=== PATIENT | female | born 1990 | race Caucasian/White ===

== ENCOUNTER 2025-01-24 10:33 | Outpatient (CLI) | payer OTHER, SELFPAY ==
--- OUTSIDE RECORDS SUMMARY | 2023-07-28 15:30 | XMS_ITS ---
Author Organization [facility] [place] ([address]) Address [address] [place] [address] Care Team Providers Care Presser All Around Name Role Phone Clifford Kimble Primary Care Provider Unavailabl e Brenda Godoy Unavailable [phone] ZZ-Migration, Provider Unavailable Unavailab le Allergies Allergen (clinical drug ingredient) Drug/Non Drug Allergy documented on EMR Reaction Allergy Type Onset Date Status Substance with sulfonamide structure and antibacterial mechanism of action (substance) SULFA MEDICATIONS (uncoded) Hives, welling, itchiness Allergy Active REASON FOR VISIT [facility] Conversion Encounter Medications Medication SIG (Take, Route, Frequency, Duration) Notes Start Date End Date Status Cetirizine HCl 10 MG 1 tab(s) orally once a day; Duration: 30 days Active OLOPATADINE NASAL 665 MCG/INH 2 SPRAY(S) INTRANASALLY 2 TIMES A DAY; Duration: 30 DAYS *Please review for potential replacement for e-prescription and drug interaction check* Active NASAL WASHES N/A DIRECTED INTRANASALLY NEEDED; Duration: 30 *Please review for potential replacement for e-prescription and drug interaction check* Active Spironolactone 25 MG 1 tab(s) orally once a day Active Encounters Encounter Location Date Provider [place] [address] 07/28/2023 Provider ZZ-Migration Plan Of Treatment No Information Progress Notes * Renita GARCIA RDOB:1990 (34 yo F)Acc No.[id number]:07/28/2023 Patient: Renita EPPERSON Provider: Larry Covarrubias :1990 A ge:32 Y S ex:Female Date:07/28/2023 Address:[address] [place], [id number] Pcp:Clifford Kimble Subjective: * Chief Complaints: * 1 . [facility] To Med[facility] Conversion Encounter. * Medical History: * Medications: T aking Cetirizine HCl 10 MG Tablet 1 tab(s) orally once a day , Taking OLOPATADINE NASAL 665 MCG/INH SPRAY 2 SPRAY(S) INTRANASALLY 2 TIMES A DAY , Notes to Pharmacist: *Please review for potential replacement for e-prescription and drug interaction check*, Taking NASAL WASHES N/A 1 QUART OF STERILIZED TAP WATER OR DISTILLED WATER, 1 TSP NACL, 1 PINCH OF BAKING SODA DIRECTED INTRANASALLY NEEDED , Notes to Pharmacist: *Please review for potential replacement for e-prescription and drug interaction check*, Taking Spironolactone 25 MG Tablet 1 tab(s) orally once a day * Allergies: S ULFA MEDICATIONS: Hives, welling, itchiness. Objective: * Vitals: Assessment: Plan: * Treatment: * Billing Information: * Visit Code: * Procedure Codes: * Electronic signature of Anh MartinZ-Migration on 01/24/2025 at 10:40 AM SHAKE PACKER Sign off status: Pending * Provider: Larry Covarrubias Date: 0 07/28/2023 Generated for Karin powers/Chetna/Alyse on: 1 03/27/2024 10:40 AM SHAKE PACKER
--- OUTSIDE RECORDS SUMMARY | 2025-01-24 10:40 | XMS_ITS | Patient Health Record ---
Author Organization [facility] [place] ([address]) Address [address] [place] [address] Care Team Providers Care Color Paste Mixer Name Role Phone Lamin Clifford Primary Care Provider Brenda Finch Unavailable [phone] Allergies Allergen (clinical drug ingredient) Drug/Non Drug Allergy documented on EMR Reaction Allergy Type Onset Date Status Substance with sulfonamide structure and antibacterial mechanism of action (substance) SULFA MEDICATIONS (uncoded) Hives, welling, itchiness Allergy Active Reason For Referral No Information Medications Medication SIG (Take, Route, Frequency, Duration) Notes Start Date End Date Status CETIRIZINE 10 mg 1 tab(s) orally once a day; Duration: 30 days Active Cetirizine HCl 10 MG 1 tab(s) orally once a day; Duration: 30 days Active SPIRONOLACTONE 25 mg 1 tab(s) orally once a day Active OLOPATADINE NASAL 665 MCG/INH 2 SPRAY(S) INTRANASALLY 2 TIMES A DAY; Duration: 30 DAYS *Please review for potential replacement for e-prescription and drug interaction check* Active NASAL WASHES N/A DIRECTED INTRANASALLY NEEDED; Duration: 30 *Please review for potential replacement for e-prescription and drug interaction check* Active Spironolactone 25 MG 1 tab(s) orally once a day Active Social History Tobacco Use: Social History Observation Description Date Details (start date - stop date) Never Smoker NA - NA Smoking Smart Form: Question Answer Notes Are you a: never smoker Problems Problem Type SNOMED Code ICD Code Onset Dates Problem Status W/U Status Risk Notes Problem Chronic allergic conjunctivitis (85909506) Other chronic allergic conjunctivitis (H10.45) Active confirmed Problem Allergic rhinitis caused by pollen (disorder) (15020695) Allergic rhinitis due to pollen (J30.1) Active confirmed Problem Allergic rhinitis (01462640) Other allergic rhinitis (J30.89) Active confirmed Problem Urticaria (407964572) Other urticaria (L50.8) Active confirmed Problem Allergic rhinitis caused by animal hair and dander (295507549877066) Allergic rhinitis due to animal (cat) (dog) hair and dander (J30.81) Active confirmed Plan Of Treatment No Information Insurance Providers Payer Name Payer Address Payer Phone Subscriber Number Group Number Insured Name Patient Relationship to Insured Coverage Start Date Coverage End Date [employer] [address] [place] [phone] [id number] Renita Gay Self - patient is the insured 4
--- OUTSIDE RECORDS SUMMARY | 2025-01-24 10:40 | XMS_ITS | Data Portability ---
Author Organization [place] [facility], Main Office Address [address] [place] [address] Care Team Providers Care Data Center Consultant Name Role Phone CLIFFORD KIMBLE Primary Care Provider [phone] Assessment Encounter Date Assessment Date Assessment LastModified by Organization Details LastModified Time 08/29/2022 08/29/2022 31 yo F with - WELL ADULT VISIT - ACNE D/w pt in detail about her findings and further plan of care. Will do routine labs. Meds as directed. Diet and exercise explained. Safe sex education given. Cont f/u with Gyne as per schedule. HM: WWE - 08/04, normal as per pt. Cont f/u with Gyne as per schedule. Flu - 2021. Tdap - 06/27. Gardasil - Pt declined. F/u in 2-3 weeks. Annual labs in 09/04. [email or web address] Not available 08/29/2022 17:54:13 03/06/2023 03/06/2023 32 yo F with - WELL ADULT VISIT - WORK PHYSICAL - BRONCHITIS, allergic - ACNE D/w pt in detail about her findings and further plan of care. Will do routine labs, PPD. Form filled out and given to pt. Meds as directed. Diet and exercise explained. Safe sex education given. F/u with Plug Sorter as per schedule. Cont f/u with Derm as per schedule. Cont f/u with Gyne as per schedule. HM: WWE - 08/04, normal as per pt. Cont f/u with Gyne as per schedule. Flu - 03/06/23. Tdap - 06/27. Gardasil - Pt declined. F/u in 3 weeks. Annual labs in 03/08. [email or web address] Not available 03/06/2023 17:09:44 01/21/2024 01/21/2024 D/w pt about her findings and further plan of care. Explained pt about different options for pt. Meds as directed. OTC Benadryl as directed prn. Advised pt to f/u with Ophtho if any vision concerns Or Annually. Educated pt about alarming symptoms to monitor at home and call us back or get checked in ED. F/u as directed. [email or web address] Not available 01/21/2024 16:17:33 03/25/2024 03/25/2024 33 yo F with - WELL ADULT VISIT - VIRAL GASTROENTERITIS - ? IBS - CHRONIC ALLERGIES - ACNE D/w pt in detail about her findings and further plan of care. Will do routine labs, other labs. Meds as directed. Pt declined for any Rx antacids at this time. Offered to refer to GI; but pt declined for now. Diet and exercise explained. Cont f/u with Plug Sorter as per schedule. Cont f/u with Derm as per schedule. Cont f/u with Gyne as per schedule. Cont f/u with Ophtho as per schedule. HM: WWE - 02/04, normal as per pt. Cont f/u with Gyne as per schedule. Flu - 12/05. Tdap - 2022. Gardasil - Pt declined. F/u in 3 weeks. Annual labs in 04/09. [email or web address] Not available 03/25/2024 09:52:13 04/15/2024 04/15/2024 33 yo F with - VIT D DEFICIENCY - HYPERBILIRUBINEMIA , mild - VIRAL GASTROENTERITIS - ? IBS - CHRONIC ALLERGIES - ACNE Annual labs: 03/25/24. D/w pt in detail about her findings, recent labs and further plan of care. Offered to do more testing for her high bilirubin, but pt declined at this time. Meds as directed. Pt declined for any Rx antacids. Diet and exercise explained. Cont f/u with Plug Sorter as per schedule. Cont f/u with Derm as per schedule. Cont f/u with Gyne as per schedule. Cont f/u with Ophtho as per schedule. Offered to refer to GI; but pt declined. Offered to refer to Neuro; but pt declined. HM: WWE - 02/04, normal as per pt. Cont f/u with Gyne as per schedule. Flu - 12/05. Tdap - 2022. Gardasil - Pt declined. F/u PRN/Annually. Annual labs in 04/09. [email or web address] Not available 04/15/2024 17:18:00 Plan of Treatment Reminders Order Date Submit Date Provider Last Modified By Organization Details Last Modified Time Details Appointments None recorded. Lab vitamin D, 25-hydroxy, total, serum 2024 025 [facility] (Lab), [address] [place], [address], 5 05:26:47 amylase + lipase, serum 2024 025 [email or web address] [facility], [address], [address], 5 14:37:17 tissue transglutam inase, iga+igg Ab, serum 2024 025 [employer] [facility], [address], [address], 5 05:26:44 gliadin peptide igg +iga Ab, serum 2024 025 [employer] [facility], [address], [address], 5 05:26:43 CBC w/ auto diff 2024 025 [facility] (Lab), [address] [place], [address], 5 05:26:40 CMP, serum or plasma 2024 025 [facility] (Lab), [address] [place], [address], 5 05:26:39 lipid panel, serum 2024 025 [facility] (Lab), [address] [place], [address], 5 05:26:37 TSH, serum, reflex free T4 2024 025 [email or web address] [address] [facility] (Lab), [address] [place], [address], 5 15:08:47 urinalysis complete, reflex culture 2024 025 [facility] (Lab), [address] [place], [address], 5 05:26:41 magnesium, serum or plasma 2024 025 [employer] [facility], [address], [address], 5 05:26:38 vitamin B12 + folate, serum or blood 2024 025 [employer] [facility], [address], [address], 5 05:26:45 HbA1c (hemoglobin A1c), blood 2024 025 [facility] (Lab), [address] [place], [address], 5 05:26:49 vitamin D, 25-hydroxy, total, serum [address] [facility] (Lab), [address] [place], [address], 4 08:03:17 PPD (purified protein derivative) , skin test 2023 024 [facility], [address] [place] [address], [address], 4 09:06:59 HbA1c (hemoglobin A1c), blood [address] (Lab), [address] [place], [address], 4 08:03:17 CBC w/ auto diff [address] (Lab), [address] [place], [address], 4 08:03:16 CMP, serum or plasma [address] (Lab), [address] [place], [address], 4 08:03:16 lipid panel, serum [address] (Lab), [address] [place], [address], 4 08:03:16 TSH, serum, reflex free T4 [address] (Lab), [address] [place], [address], 4 08:03:16 urinalysis complete, reflex culture [address] (Lab), [address] [place], [address], 4 08:03:17 vitamin D, 25-hydroxy, total, serum [address] (Lab), [address] [place], [address], 3 17:53:47 HbA1c (hemoglobin A1c), blood [address] (Lab), [address] [place], [address], 3 17:53:47 CBC w/ auto diff [address] (Lab), [address] [place], [address], 3 17:21:42 CMP, serum or plasma [address] (Lab), [address] [place], [address], 3 17:22:02 lipid panel, serum [address] (Lab), [address] [place], [address], 17:53:46 TSH, serum, reflex free T4 [address] (Lab), [address] [place], [address], 3 17:53:47 urinalysis complete, reflex culture [address] (Lab), [address] [place], [address], 3 17:53:47 Referral None recorded. Procedures None recorded. Surgeries None recorded. Imaging None recorded. Medication Orders ergocalcife rol (vitamin D2) 1,250 mcg (50,000 unit) capsule 2024 025 [facility]134, [address] [place], [place], [id number], 5 17:10:44 ondansetron 4 mg disintegrat ing tablet 2024 025 [facility] #63283, [address] [place], [place], [id number], 5 09:43:13 Ubrelvy 100 mg tablet 2023 024 [facility] #06386, [address] [facility], [place], [place], [id number], 4 16:04:03 sumatriptan 50 mg tablet [address] [facility]65427, [address] [facility], [place], [place], [id number], 5 17:17:23 benzonatate 200 mg capsule [address] [facility]31773, [address] [facility], [place], [place], [id number], 4 16:04:15 Medrol (Stiven) 4 mg tablets in a dose pack [address] [facility]43959, [address] [facility], [place], [place], [id number], 4 16:04:34 Tubersol 5 tub. unit/0.1 mL intradermal injection solution 2023 024 [email or web address] Not available 4 16:04:50 acetazolami de 125 mg tablet 2022 023 [facility], [address] [facility], [place], [place], [id number], 5 17:17:14 ondansetron 4 mg disintegrat ing tablet [address] [facility]57573, [address] [facility], [place], [place], [id number], 4 16:05:01 meclizine 25 mg tablet 2022 023 [email or web address] [facility]12311, [address] [place], [place], [id number], 4 16:05:10 clindamycin 1 % topical gel 2022 023 [email or web address] [facility]12047, [address] [place], [place], [id number], 4 16:05:22 Patient TargetsNo targets recorded. Patient Instructions Encounter Date Encounter Id Patient Instructions Last Modified By Organization Details Last Modified Time 04/15/2024 [id number] irritable bowel syndrome: care instructions [email or web address] Not available 04/15/2024 17:18:45 Reason for Referral None Reported. Results Created Date Observation Date Name Description Value Unit Range Abnormal Flag Note LastModifiedBy Organization Detail LastModifiedTime 03/25/1903/27/2024 LIPID PANEL , STAND YOVANY cholesterol, total 179 mg/dL <200 normal Not Available [facility] [address] [address] [place], [address], 03/27/2024 05:26:36 03/25/1903/27/2024 LIPID PANEL , STAND YOVANY HDL cholesterol 77 mg/dL > or = 50 normal Not Available [facility] [address] [place], [address], 03/27/2024 05:26:36 03/25/1903/27/2024 LIPID PANEL , STAND YOVANY triglyceride s 57 mg/dL <150 normal Not Available [facility] [address] [place], [address], 03/27/2024 05:26:36 03/25/1903/27/2024 LIPID PANEL , STAND YOVANY LDL-choleste rol 88 mg/dL _(jairon c) normal Refer ence range : <100 Lucas able range <100 mg/dL for prima ry preve ntion ; <70 mg/dL for patie nts with CHD or diabe tic patie nts with > or = 2 CHD risk facto rs. LDL-C is now calcu lated using the [facility] kins kat marx, which is a valid ated novel richie lewis than the Fried holden mariat ion in the estim ation of LDL-C . Vanna marx SS et al. JUAN. 2013; 310(1 9): 2061- 2068 (http ://ed ucati on.Qu estDi Gridpoint Systemss. com/f aq/FA Q164) Not Available [facility] [address] [address] [place], [address], 03/27/2024 05:26:36 03/25/19 25 03/27/2024 LIPID PANEL , STAND YOVANY chol/HDLC ratio 2.3 (calc ) <5.0 normal Not Available [facility] [address], [address], 03/27/2024 05:26:36 03/25/19 25 03/27/2024 LIPID PANEL , STAND YOVANY non HDL cholesterol 102 mg/dL _(jairon c) <130 normal For patie nts with diabe radha plus 1 major ASCVD risk facto r, treat ing to a non-H DL-C goal of <100 mg/dL (LDL- C of <70 mg/dL ) is consi krzysztofd a phoenix dominguez optio n. Not Available [facility] [address] [address] [place], [address], 03/27/2024 05:26:36 03/25/19 25 03/27/2024 MAGNE SIUM magnesium 2.1 mg/dL 1.5-2. 5 normal Not Available [facility] [address] [address] [place], [address], 03/27/2024 05:26:38 03/25/19 25 03/27/2024 COMPR EHENS WIN METAB OLIC PANEL glucose 86 mg/dL 65-99 normal Fasti ng refer ence inter aristides Not Available [facility] [address] [address] [place], [address], 03/27/2024 05:26:39 03/25/19 25 03/27/2024 COMPR EHENS WIN METAB OLIC PANEL urea nitrogen (BUN) 19 mg/dL 7-25 normal Not Available [address] [address] [place], [address], 03/27/2024 05:26:39 03/25/19 25 03/27/2024 COMPR EHENS WIN METAB OLIC PANEL creatinine 0.62 mg/dL 0.50-0 .97 normal Not Available [address], [address], 03/27/2024 05:26:39 03/25/19 25 03/27/2024 COMPR EHENS WIN METAB OLIC PANEL eGFR 121 mL/mi n/1.7 3m2 > or = 60 normal Not Available [address] [address] [place], [address], 03/27/2024 05:26:39 03/25/19 25 03/27/2024 COMPR EHENS WIN METAB OLIC PANEL BUN/creatini ne ratio SEE NOTE: (calc ) 6-22 Not Repor ellis: BUN and Creat inine are withi n refer ence range . Not Available [address] [address] [place], [address], 03/27/2024 05:26:39 03/25/19 25 03/27/2024 COMPR EHENS WIN METAB OLIC PANEL sodium 139 mmol/ L 135-14 6 normal Not Available [facility] [address] [address] [place], [address], 03/27/2024 05:26:39 03/25/19 25 03/27/2024 COMPR EHENS WIN METAB OLIC PANEL potassium 3.9 mmol/ L 3.5-5. 3 normal Not Available [facility] [address] [address] [place], [address], 03/27/2024 05:26:39 03/25/19 25 03/27/2024 COMPR EHENS WIN METAB OLIC PANEL chloride 100 mmol/ L 98-110 normal Not Available [address], [address], 03/27/2024 05:26:39 03/25/19 25 03/27/2024 COMPR EHENS WIN METAB OLIC PANEL carbon dioxide 31 mmol/ L 20-32 normal Not Available [address], [address], 03/27/2024 05:26:39 03/25/19 25 03/27/2024 COMPR EHENS WIN METAB OLIC PANEL calcium 9.4 mg/dL 8.6-10 .2 normal Not Available [address], [address], 03/27/2024 05:26:39 03/25/19 25 03/27/2024 COMPR EHENS WIN METAB OLIC PANEL protein, total 7.2 g/dL 6.1-8. 1 normal Not Available [address], [address], 03/27/2024 05:26:39 03/25/19 25 03/27/2024 COMPR EHENS WIN METAB OLIC PANEL albumin 5.0 g/dL 3.6-5. 1 normal Not Available [address], [address], 03/27/2024 05:26:39 03/25/19 25 03/27/2024 COMPR EHENS WIN METAB OLIC PANEL globulin 2.2 g/dL_ (calc ) 1.9-3. 7 normal Not Available [address], [address], 03/27/2024 05:26:39 03/25/19 25 03/27/2024 COMPR EHENS WIN METAB OLIC PANEL albumin/glob ulin ratio 2.3 (calc ) 1.0-2. 5 normal Not Available [address], [address], 03/27/2024 05:26:39 03/25/19 25 03/27/2024 COMPR EHENS WIN METAB OLIC PANEL bilirubin, total 1.4 mg/dL 0.2-1. 2 high Not Available [address], [address], 03/27/2024 05:26:39 03/25/19 25 03/27/2024 COMPR EHENS WIN METAB OLIC PANEL alkaline phosphatase 45 U/L 31-125 normal Not Available [facility] [address], [address], 03/27/2024 05:26:39 03/25/19 25 03/27/2024 COMPR EHENS WIN METAB OLIC PANEL AST 16 U/L 10-30 normal Not Available [address], [address], 03/27/2024 05:26:39 03/25/19 25 03/27/2024 COMPR EHENS WIN METAB OLIC PANEL ALT 13 U/L 6-29 normal Not Available [address], [address], 03/27/2024 05:26:39 03/25/19 25 03/27/2024 CBC (INCL UDES DIFF/ PLT) white blood cell count 6.7 thous and/u L 3.8-10 .8 normal Not Available [address], [address], 03/27/2024 05:26:40 03/25/19 25 03/27/2024 CBC (INCL UDES DIFF/ PLT) red blood cell count 4.88 savannah on/uL 3.80-5 .10 normal Not Available [address], [address], 03/27/2024 05:26:40 03/25/19 25 03/27/2024 CBC (INCL UDES DIFF/ PLT) hemoglobin 14.9 g/dL 11.7-1 5.5 normal Not Available [address], [address], 03/27/2024 05:26:40 03/25/19 25 03/27/2024 CBC (INCL UDES DIFF/ PLT) hematocrit 45.3 % 35.0-4 5.0 high Not Available [facility] [address], [address], 03/27/2024 05:26:40 03/25/19 25 03/27/2024 CBC (INCL UDES DIFF/ PLT) MCV 92.8 fL 80.0-1 00.0 normal Not Available [address], [address], 03/27/2024 05:26:40 03/25/19 25 03/27/2024 CBC (INCL UDES DIFF/ PLT) MCH 30.5 pg 27.0-3 3.0 normal Not Available [address], [address], 03/27/2024 05:26:40 03/25/19 25 03/27/2024 CBC (INCL UDES DIFF/ PLT) MCHC 32.9 g/dL 32.0-3 6.0 normal For adult s, a sligh t decre ase in the calcu lated MCHC value (in the range of 30 to 32 g/dL) is most likel y not clini jose dennis t; jurgen er, it shoul d be inter prete d with cauti on in corre latio n with other red cell sonja eters and the patie nt's clini jairon condi tion. Not Available [facility] [address], [address], 03/27/2024 05:26:40 03/25/19 25 03/27/2024 CBC (INCL UDES DIFF/ PLT) RDW 12.6 % 11.0-1 5.0 normal Not Available [address], [address], 03/27/2024 05:26:40 03/25/19 25 03/27/2024 CBC (INCL UDES DIFF/ PLT) platelet count 233 thous and/u L 140-40 0 normal Not Available [address], [address], 03/27/2024 05:26:40 03/25/19 25 03/27/2024 CBC (INCL UDES DIFF/ PLT) MPV 12.2 fL 7.5-12 .5 normal Not Available [address], [address], 03/27/2024 05:26:40 03/25/19 25 03/27/2024 CBC (INCL UDES DIFF/ PLT) absolute neutrophils 5260 cells /uL 1500-7 800 normal Not Available [address], [address], 03/27/2024 05:26:40 03/25/19 25 03/27/2024 CBC (INCL UDES DIFF/ PLT) absolute lymphocytes 824 cells /uL 850-39 00 low Not Available [address], [address], 03/27/2024 05:26:40 03/25/19 25 03/27/2024 CBC (INCL UDES DIFF/ PLT) absolute monocytes 429 cells /uL 200-95 0 normal Not Available [address], [address], 03/27/2024 05:26:40 03/25/19 25 03/27/2024 CBC (INCL UDES DIFF/ PLT) absolute eosinophils 168 cells /uL 15-500 normal Not Available [facility] [address], [address], 03/27/2024 05:26:40 03/25/19 25 03/27/2024 CBC (INCL UDES DIFF/ PLT) absolute basophils 20 cells /uL 0-200 normal Not Available [address], [address], 03/27/2024 05:26:40 03/25/19 25 03/27/2024 CBC (INCL UDES DIFF/ PLT) neutrophils 78.5 % normal Not Available [facility] [address], [address], 03/27/2024 05:26:40 03/25/19 25 03/27/2024 CBC (INCL UDES DIFF/ PLT) lymphocytes 12.3 % normal Not Available [address], [address], 03/27/2024 05:26:40 03/25/19 25 03/27/2024 CBC (INCL UDES DIFF/ PLT) monocytes 6.4 % normal Not Available [address], [address], 03/27/2024 05:26:40 03/25/19 25 03/27/2024 CBC (INCL UDES DIFF/ PLT) eosinophils 2.5 % normal Not Available [address], [address], 03/27/2024 05:26:40 03/25/19 25 03/27/2024 CBC (INCL UDES DIFF/ PLT) basophils 0.3 % normal Not Available [address], [address], 03/27/2024 05:26:40 03/25/19 25 03/27/2024 URINA LYSIS , COMPL ETE W/REF AUDRA TO CULTU RE color YELLOW yellow normal Not Available [address], [address], 03/27/2024 05:26:41 03/25/19 25 03/27/2024 URINA LYSIS , COMPL ETE W/REF AUDRA TO CULTU RE appearance CLEAR clear normal Not Available [address], [address], 03/27/2024 05:26:41 03/25/19 25 03/27/2024 URINA LYSIS , COMPL ETE W/REF AUDRA TO CULTU RE specific gravity 1.029 1.001- 1.035 normal Not Available [address], [address], 03/27/2024 05:26:41 03/25/19 25 03/27/2024 URINA LYSIS , COMPL ETE W/REF AUDRA TO CULTU RE pH 7.0 5.0-8. 0 normal Not Available [address], [address], 03/27/2024 05:26:41 03/25/19 25 03/27/2024 URINA LYSIS , COMPL ETE W/REF AUDRA TO CULTU RE glucose NEGATI VE negati ve normal Not Available [address], [address], 03/27/2024 05:26:41 03/25/19 25 03/27/2024 URINA LYSIS , COMPL ETE W/REF AUDRA TO CULTU RE bilirubin NEGATI VE negati ve normal Not Available [address], [address], 03/27/2024 05:26:41 03/25/19 25 03/27/2024 URINA LYSIS , COMPL ETE W/REF AUDRA TO CULTU RE ketones 1+ negati ve abnormal Not Available [address], [address], 03/27/2024 05:26:41 03/25/19 25 03/27/2024 URINA LYSIS , COMPL ETE W/REF AUDRA TO CULTU RE occult blood NEGATI VE negati ve normal Not Available [address], [address], 03/27/2024 05:26:41 03/25/19 25 03/27/2024 URINA LYSIS , COMPL ETE W/REF ADURA TO CULTU RE protein TRACE negati ve abnormal Not Available [address], [address], 03/27/2024 05:26:41 03/25/19 25 03/27/2024 URINA LYSIS , COMPL ETE W/REF AUDRA TO CULTU RE nitrite NEGATI VE negati ve normal Not Available [address], [address], 03/27/2024 05:26:41 03/25/19 25 03/27/2024 URINA LYSIS , COMPL ETE W/REF AUDRA TO CULTU RE leukocyte esterase 2+ negati ve abnormal Not Available [address], [address], 03/27/2024 05:26:41 03/25/19 25 03/27/2024 URINA LYSIS , COMPL ETE W/REF AUDRA TO CULTU RE WBC 6-10 /hpf < or = 5 abnormal Not Available [address], [address], 03/27/2024 05:26:41 03/25/19 25 03/27/2024 URINA LYSIS , COMPL ETE W/REF AUDRA TO CULTU RE RBC 0-2 /hpf < or = 2 normal Not Available [address], [address], 03/27/2024 05:26:41 03/25/19 25 03/27/2024 URINA LYSIS , COMPL ETE W/REF AUDRA TO CULTU RE squamous epithelial cells 10-20 /hpf < or = 5 abnormal Not Available [facility] [place] [address] [address], [place], [address], 03/27/2024 05:26:41 03/25/19 25 03/27/2024 URINA LYSIS , COMPL ETE W/REF AUDRA TO CULTU RE bacteria MODERA TE /hpf none seen abnormal Not Available [facility] [address], [address], 03/27/2024 05:26:41 03/25/19 25 03/27/2024 URINA LYSIS , COMPL ETE W/REF AUDRA TO CULTU RE hyaline cast 0-5 /lpf none seen abnormal Not Available [address], [address], 03/27/2024 05:26:41 03/25/19 25 03/27/2024 URINA LYSIS , COMPL ETE W/REF AUDRA TO CULTU RE note This urine was inez zed for the prese nce of WBC, RBC, bacte leonides, casts , and other forme d eleme nts. Only those eleme nts seen were repor ellis. Not Available [address], [address], 03/27/2024 05:26:41 03/25/19 25 03/27/2024 REFLE XIVE URINE CULTU RE reflexive urine culture CULTU RE INDIC ATED - RESUL TS TO FOLLO W Not Available [address], [address], 03/27/2024 05:26:43 03/25/19 25 03/27/2024 GLIAD IN (DEAM IDATE D) AB (IGG, IGA) gliadin (deamidated) Ab (IgA) <1.0 U/mL Value Inter preta tion ----- ----- ----- ---- <15.0 Antib blair not detec ellis > or = 15.0 Antib blair detec ellis Not Available [address], [address], 03/27/2024 05:26:43 03/25/1903/27/2024 GLIAD IN (DEAM IDATE D) AB (IGG, IGA) gliadin (deamidated) Ab (IgG) <1.0 U/mL Value Inter preta tion ----- ----- ----- ---- <15.0 Antib blair not detec ellis > or = 15.0 Antib blair detec ellis Not Available [address], [address], 03/27/2024 05:26:43 03/25/1903/27/2024 TISSU E TRANS GLUTA NASRA E ANTIB BLAIR, IGG,I GA tissue transglutami nase Ab, IgG <1.0 U/mL Value Inter preta tion ----- ----- ----- ---- <15.0 Antib blair not detec ellis > or = 15.0 Antib blair detec ellis Not Available [address], [address], 03/27/2024 05:26:44 03/25/19 25 03/27/2024 TISSU E TRANS GLUTA NASRA E ANTIB BLAIR, IGG,I GA tissue transglutami nase Ab, IgA <1.0 U/mL Value Inter preta tion ----- ----- ----- ---- <15.0 Antib blair not detec ellis > or = 15.0 Antib blair detec ellis Not Available [facility] [address], [address], 03/27/2024 05:26:44 03/25/1903/27/2024 VITAM IN B12/F OLATE , SERUM PANEL vitamin B12 656 pg/mL 200-11 00 normal Not Available [address], [address], 03/27/2024 05:26:45 03/25/1903/27/2024 VITAM IN B12/F OLATE , SERUM PANEL folate, serum 16.9 NG/mL normal Refer ence Range Low: <3.4 Borde rline : 3.4-5 .4 Shirlene l: >5.4 Not Available [facility] [address] [place], [address], 03/27/2024 05:26:45 03/25/1903/27/2024 TSH W/REF AUDRA TO FT4 TSH w/reflex to FT4 1.92 mIU/L normal Refer ence Range > or = 20 Years 0.40- 4.50 Pregn scar Range s First trime ster 0.26- 2.66 Secon d trime ster 0.55- 2.73 Third trime ster 0.43- 2.91 Not Available [facility] [address] [place], [address], 03/27/2024 05:26:47 03/25/1903/27/2024 VITAM IN D,25- OH,TO CHER,I A vitamin D,25-oh,tota l,ia 24 NG/mL 30-100 low Vitam in D Statu s 25-OH Vitam in D: Defic iency : <20 ng/mL Insuf ficie ncy: 20 - 29 ng/mL Optim al: > or = 30 ng/mL For 25-OH Vitam in D testi ng on patie nts on D2-lindquist pplem entat ion and patie nts for whom quant itati on of D2 and D3 fract ions is requi red, the [facility](TM ) 25-OH VIT D, (D2,D 3), LC/MS /MS is recom austen d: order code 78786 (hannah ents >2yrs ). See Note 1 Note 1 For addit ional infor lee [place] e refer to http: //ileana marx.Que stDia gnost ics.c om/fa q/FAQ 199 (This link is being provi ded for infor isaac amaya/ educa radha l purpo ses only. ) Not Available [facility] [address] [place] [address] [place], [address], 03/27/2024 05:26:47 03/25/19 25 03/27/2024 AMYLA SE amylase 36 U/L 21-101 normal Not Available [facility] [address] [address] [place], [address], 03/27/2024 05:26:48 03/25/19 25 03/27/2024 LIPAS E lipase 19 U/L 7-60 normal Not Available [facility] [address] [address] [place], [address], 03/27/2024 05:26:49 03/25/19 25 03/27/2024 HEMOG LOBIN A1C hemoglobin A1C 5.2 %_of_ total _HGB <5.7 normal For the purpo se of jonny nicholson for the prese nce of diabe radha: <5.7% Consi stent with the absen ce of diabe radha 5.7-6 .4% Consi stent with incre ased risk for diabe radha (pred iabet es) > or =6.5% Consi stent with diabe radha This assay resul t is consi stent with a decre ased risk of diabe radha. Curre ntly, no conse nsus exist s venice rice use of hemog lobin A1c for diagn osis of diabe radha in child samuel. Accor ding to Ameri can Diabe radha Assoc iatio n (ADA) guide lines , hemog lobin A1c <7.0% repre sents optim al contr ol in non-p regna nt diabe tic patie nts. Diffe rent metri cs may apply to speci fic patie nt popul ation s. Stand ards of Medic al Care in Diabe radha(A DA). Not Available [facility] [address] [address] [place], [address], 03/27/2024 05:26:49 03/25/19 25 03/27/2024 CULTU RE, URINE , ROUTI NE culture, urine, routine SEE NOTE CULTU RE, URINE , ROUTI NE Micro Numbe r: [id number] Test Statu s: Final Speci men Sourc e: Urine Speci men Quali ty: Adequ ate Resul t: No Growt h Not Available [facility] [address], [place], [address], 03/27/2024 05:26:50 Result Notes None recorded. Problems Name Problem SNOMED Code Status Onset Date Resolution Date Notes Provider Name and Address Organization Details Recorded Time Pain in throat 814889772 Completed Not Available [facility] 3 07:43:27 Sinusitis 26160467 Completed Not Available [facility] 3 07:43:27 Fever 780104565 Completed Not Available [facility] 3 07:43:27 Pharyngiti s 260140329 Completed Not Available [facility] 3 07:43:27 Seasonal allergy 833911723 Active Not Available [facility] 3 07:43:27 Cough 73914237 Completed Not Available [facility] 3 07:43:27 Upper respirator y infection 13847126 Completed Not Available [facility] 3 07:43:27 Fatigue 69551472 Completed Not Available [facility] 3 07:43:27 Otitis media 16089719 Completed 201606/21/2017 Not Available [facility] 3 07:43:27 Acute sinusitis 87985838 Completed 201701/09/2018 Not Available [facility] 3 07:43:27 Abnormal cervical Papanicola ou smear 905042473 Active 2018 Not Available [facility] 3 07:43:27 Acne 39649665 Active 2022 Clifford Kimble MD [address] [facility], [place], [address] , [facility] [employer] [facility] 3 17:40:53 Effects of high altitude 31583041 Active 2022 Clifford Kimble MD [address], [place], [address] , [facility] 3 17:43:51 Persistent cough 882788115 Active 2023 Clifford Kimble MD [address], [place], [address] , [facility] 4 16:51:19 Headache 98300518 Active 2023 Clifford Kimble MD [address], [place], [address] , [facility] 4 15:41:50 Migraine without aura 04509712 Active 2023 Clifford Kimble MD [address], [place], [address] , [facility] 4 16:00:48 Family history of neoplasm of brain 481781383 Active 2023 Clifford Kimble MD [address], [place], [address] , [facility] 4 16:15:56 Irritable bowel syndrome 95604516 Active 2024 Clifford Kimble MD [address], [place], [address] , [facility] 5 09:38:21 Gastroente ritis 97632953 Active 2024 Clifford Kimble MD [address], [place], [address] , [facility] 5 09:41:49 Vitamin D deficiency 06701916 Active 2024 Clifford Kimble MD [address], [place], [address] , [facility] 5 15:41:27 Hyperbilir ubinemia 74330680 Active 2024 Clifford Kimble MD [address], [place], [address] , [facility] 17:07:15 Problem Notes None recorded. Medical Equipment None Reported. Allergies Allergen ID Allergen Name Allergen Category Reaction Reaction Severity Criticality Documentation Date Start Date Code Code System Note Provider Name and Address Organization Details Recorded Time 56023 Substance with sulfonami de structure and antibacte rial mechanism of action (substanc e) medicatio n hives Not available Not available 04/12/2022 11251 8003 SNOMED swell ing to feet hand and lips Not Available [facility] 3 07:47:05 Medications Name Sig Start Date Stop Date Status Note LastModified by Organization Details LastModified Time cyclobenz aprine 10 mg tablet Take 1 tablet twice a day by oral route. active Not Available Not Available No t Available tretinoin 0.1 % topical cream 04/15 completed Not Available Not Available Not Available amoxicill in 500 mg capsule Take 1 capsule twice a day by oral route for 10 days. 08/29 completed Not Available Not Available Not Available cetirizin e 10 mg tablet TAKE 1 TABLET BY MOUTH EVERY DAY 01/20 completed Not Available Not Available Not Available azithromy sahil 250 mg tablet TAKE DIRECTED 03/06 completed Not Available Not Available Not Available ofloxacin 0.3 % eye drops 11/12 completed Not Available Not Available Not Available acetazola mide 125 mg tablet TAKE 1 TABLET BY MOUTH TWICE DAILY FOR 15 DAYS DIRECTED 04/15 completed Not Available Not Available Not Available fluconazo le 150 mg tablet Take 1 tablet every day by oral route for 1 day. 09/28 completed Not Available Not Available Not Available benzonata te 200 mg capsule TAKE 1 CAPSULE BY MOUTH THREE TIMES DAILY FOR 10 DAYS NEEDED 01/20 completed Not Available Not Available Not Available atovaquon e 250 mg-progua nil 100 mg tablet PLEASE SEE ATTACHED FOR DETAILED DIRECTIO NS 08/29 completed Not Available Not Available Not Available prednison e 20 mg tablet active Not Available Not Available Not Available Tubersol 5 tub. unit/0.1 mL intraderm al injection solution Inject 0.1 mL by intrader mal route as directed for 1 day. 01/20 completed Not Available Not Available Not Available spironola ctone 100 mg tablet TAKE 1 TABLET BY MOUTH DAILY active Not Available Not Available No t Available sumatript an 50 mg tablet Take 1 tablet as needed by oral route as directed for 30 days. 04/15 completed Not Available Not Available Not Available ciproflox acin 500 mg tablet active Not Available Not Available No t Available clindamyc in 1 %-benzoyl peroxide 5 % topical gel APPLY TO CLEAN DRY SKIN BID UTD active Not Available Not Available No t Available sulfameth oxazole 800 mg-trimet hoprim 160 mg tablet 11/12 completed Not Available Not Available Not Available spironola ctone 25 mg tablet active Not Available Not Available No t Available Kenalog 40 mg/mL suspensio n for injection Take 40 mg every day by injectio n route for 1 day. 06/21 completed Not Available Not Available Not Available Microgest in FE 03/03 (28) 1 mg-20 mcg (21)/75 mg (7) tablet 11/12 completed Not Available Not Available Not Available clindamyc in 1 % topical gel APPLY THIN LAYER TOPICALL Y TO THE AFFECTED AREA TWICE DAILY 01/20 completed Not Available Not Available Not Available meclizine 25 mg tablet TAKE 1 TABLET BY MOUTH EVERY 8 HOURS FOR 5 DAYS NEEDED 01/20 completed Not Available Not Available Not Available benzonata te 100 mg capsule TK 1 C PO Q 4 TO 6 H FOR 15 DAYS UTD 06/21 completed Not Available Not Available Not Available cephalexi n 500 mg capsule TK 1 C PO Q 6 H active Not Available Not Available No t Available neomycin- polymyxin -dexameth 3.5 mg/mL-10, 000 unit/mL-0 .1% eye drops active Not Available Not Available Not Available monteluka st 10 mg tablet TK 1 T PO QPM active Not Available Not Available No t Available ceftriaxo ne 500 mg solution for injection active [facility]#: [id number] 09-12 Not Available Not Available Not Available ergocalci ferol (vitamin D2) 1,250 mcg (50,000 unit) capsule TAKE 1 CAPSULE BY MOUTH EVERY WEEK DIRECTED active Not Available Not Available No t Available methylpre dnisolone 4 mg tablets in a dose pack FOLLOW PACKAGE DIRECTIO NS 01/20 completed Not Available Not Available Not Available ondansetr on 4 mg disintegr ating tablet Place 1 tablet every 6-8 hours by translin gual route as needed for 5 days. 2024 active Not Available Not Available Not Avai lable adapalene 0.1 % topical gel active Not Available Not Available Not Available naproxen 500 mg tablet active Not Available Not Available Not Available spironola ctone 50 mg tablet Take 1 tablet every day by oral route for 90 days. active Not Available Not Available No t Available amoxicill in 875 mg-potass ium clavulana te 125 mg tablet TK 1 T PO Q 12 H FOR 10 DAYS 03/04 completed Not Available Not Available Not Available Ventolin HFA 90 mcg/actua tion aerosol inhaler Inhale 2 puffs every 4-6 hours by inhalati on route as needed. active Not Available Not Available No t Available clindamyc in phosphate 1 % topical solution APPLY TO AFFECTED AREA TWICE A DAY 08/29 completed Not Available Not Available Not Available clindamyc in 1 % lotion active Not Available Not Available Not Available Tri-Sprin pretty (28) 0.18 mg(7)/0.2 15 mg(7)/0.2 5 mg(7)-0.0 35 mg tablet TK 1 T PO QD 01/20 completed Not Available Not Available Not Available l.norgest -eth.estr adiol triphasic 50-30 (6)/75-40 (5)/125-3 0(10) tablet TAKE DAILY DIRECTED . active Not Available Not Available No t Available Mucinex DM 30 mg-600 mg tablet,ex tended release 12 hr Take 1 tablet every 12 hours by oral route as directed for 15 days. active occasion ally Not Available Not Available Not Available Engerix-B (PF) 20 mcg/mL intramusc ular syringe 01/09 completed Not Available Not Available Not Available olopatadi ne 0.6 % nasal spray USE 2 SPRAYS IN EACH NOSTRIL TWICE DAILY 01/20 completed Not Available Not Available Not Available doxycycli ne hyclate 150 mg tablet,de layed release active Not Available Not Available Not Available BenzEFoam 5.3 % topical 09/28 completed Not Available Not Available Not Available BenzEFoam Ultra 9.8 % topical 06/21 completed Not Available Not Available Not Available Flonase Allergy Relief 50 mcg/actua tion nasal spray,susie pension 2 sprays each nostril once daily. active Not Available Not Available No t Available doxycycli ne hyclate 50 mg tablet,de layed release 09/28 completed Not Available Not Available Not Available Epiduo Forte 0.3 %-2.5 % topical gel with pump 01/09 completed Not Available Not Available Not Available Aczone 7.5 % topical gel with pump 01/09 completed Not Available Not Available Not Available Fluvirin 45 mcg (15 mcg x 3)/0.5 mL intramusc ular suspensio n ADM 0.5ML IM UTD active Not Available Not Available No t Available Flucelvax Quad (PF) 60 mcg (15 mcg x 4)/0.5 mL IM syringe active Not Available Not Available Not Available Ubrelvy 100 mg tablet TAKE 1 TABLET BY MOUTH NEEDED MIGRAINE active Not Available Not Available No t Available Nurtec ODT 75 mg disintegr ating tablet Take 1 tablet as needed by oral route as directed for 30 days. 2023 active Not Available Not Available Not Avai lable Vitals Date Recorded Body height Body mass index (BMI) Body weight Body temperature Heart rate Respiratory rate Oxygen saturation Systolic And Diastolic Provider Name and Address Organization Details Last Updated DateTime 4 162.56 cm 21.6 kg/m2 06601.2 g 98.3 [degF] 70 /min 16 /min 99 % 118/72 mm[Hg] Mark Carrasquillo [facility] 4 16:41:32 Date Recorded Body height Body mass index (BMI) Body weight Body temperature Oxygen saturation Heart rate Systolic And Diastolic Provider Name and Address Organization Details Last Updated DateTime 5 162.56 cm 22.2 kg/m2 23045.1 2 g 97.2 [degF] 99 % 113 /min 112/84 mm[Hg] La Cardona RN [facility] [employer] [facility] 5 09:33:01 Date Recorded Body height Body mass index (BMI) Body weight Body temperature Oxygen saturation Heart rate Systolic And Diastolic Provider Name and Address Organization Details Last Updated DateTime 5 162.56 cm 22.9 kg/m2 05795.1 9 g 97.2 [degF] 97 % 65 /min 110/80 mm[Hg] La Cardona RN [facility] [employer] 5 17:03:38 Date Recorded Body weight Body mass index (BMI) Body height Body temperature Heart rate Respiratory rate Oxygen saturation Systolic And Diastolic Provider Name and Address Organization Details Last Updated DateTime 3 34040.8 2 g 22 kg/m2 162.56 cm 97.2 [degF] 76 /min 16 /min 99 % 118/68 mm[Hg] Clifford Kimble MD [address] [facility], [facility] [address], [place], [address], [facility] [employer] 3 17:51:21 Date Recorded Body height Body mass index (BMI) Body weight Body temperature Oxygen saturation Heart rate Systolic And Diastolic Provider Name and Address Organization Details Last Updated DateTime 4 162.56 cm 22.6 kg/m2 06352.7 5 g 97.8 [degF] 96 % 63 /min 120/70 mm[Hg] La Cardona RN [facility] [employer] 4 15:52:44 Social History Question Answer Notes LastModified by Organizat ion Details LastModified Time Tobacco Smoking Status Never Smoker Mark velazquez [facility] [employer] 08/29/2022 17:23:33 How Many Years Have You Consumed Alcohol? 15 [email or web address] Information not available 03/25/2024 Is Blood Transfusion Acceptable In An Emergency? No Information not available 08/29/2022 What Is Your Level Of Caffeine Consumption? Occasional One Cup Coffee Per Day Information not available 03/25/2024 What Is Your Code Status? Full Code Information not available 08/29/2022 In The 14 Days Before Symptom Onset, Have You Had Close Contact With A Laboratory-confi rmed COVID-19 While That Case Was Ill? No Information not available 08/29/2022 In The 14 Days Before Symptom Onset, Have You Had Close Contact With A Person Who Is Under Investigation For COVID-19 While That Person Was Ill? No Information not available 08/29/2022 What Type Of Diet Are You Following? REGULAR Information not available 08/29/2022 What Is The Highest Grade Or Level Of School You Have Completed Or The Highest Degree You Have Received? [id number] Information not available 08/29/2022 Have There Been Any Changes To Your Family Or Social Situation? Yes Information not available 08/29/2022 What Is The Fluoride Status Of Your Home? Unknown Information not available 08/29/2022 Are There Any Guns Present In Your Home? No Information not available 08/29/2022 Do You Use Insect Repellent Routinely? Yes Information not available 08/29/2022 Where Do You Live? SingleLevelHouse Information not available 08/29/2022 Do You Have A Medical Power Of Media Planner? No Information not available 08/29/2022 How Many Children Do You Have? 0 Information not available 08/29/2022 Do You Have Any Pets? No Information not available 08/29/2022 What Is Your Relationship Status? Domestic Partner Information not available 08/29/2022 Do You Use Your Seat Belt Or Car Seat Routinely? Yes Information not available 08/29/2022 Are You Sexually Active? Yes Information not available 08/29/2022 Do You Have Smoke And Carbon Monoxide Detectors In Your Home? No Information not available 08/29/2022 Are You Passively Exposed To Smoke? No Information not available 08/29/2022 Are There Any Smokers In Your House? No Information not available 08/29/2022 Do You Participate In Social Media? Yes Information not available 08/29/2022 Do You Use Sunscreen Routinely? Yes Information not available 08/29/2022 Has Tobacco Cessation Counseling Been Provided? No Information not available 08/29/2022 Have You Recently Traveled Abroad? Yes Information not available 08/29/2022 Are You Currently In School? No Information not available 08/29/2022 Sex: Female Functional Status Question Answer Note LastModified by Organizat ion Details LastModified Time Do you use any illicit or recreational drugs? No Information not available 08/29/2022 Do you or have you ever used any other forms of tobacco or nicotine? No Information not available 08/29/2022 What is your level of alcohol consumption? Occasional [email or web address] Information not available 03/25/2024 Are you currently employed? 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 [id number] Information not available 08/29/2022 Family History Nothing Reported Notes:HTN, type 2 diabetic Medical History Condition Response BLINDNESS N RHEUMATIC FEVER N KIDNEY STONES N BLADDER PROBLEMS N MRSA N OTHER # 1 N POLIO N LUNG DISEASE/DISORDER N HISTORY OF DRUG ABUSE N RADIATION / CHEMOTHERAPY N COPD N Other # 2 N BLOOD DISEASES N SURGERY N EAR OR HEARING PROBLEMS N MUMPS N SHINGLES N FEMALE PROBLEMS / INFECTIONS N DEPRESSION (INCLUDING POST ) N BOWEL PROBLEMS N FAILED BACK SYNDROME N STROKE/TIA N THYROID DISEASE N ULCERS N BENIGN PROSTATIC HYPERPLASIA N MEASLES N CERVICALGIA N TB SKIN TEST N HYPOTENSION N MYOCARDIAL INFARCTION N PARAPELGIA N OBESITY N GERD/NAUSEA N ANEURYSM N URINARY/BLADDER/KIDNEY PROBLEMS N CORONARY ARTERY DISEASE (CAD) N MENIERE'S DISEASE N Do you have Advance directive? N ADDICTION CONCERNS N ENDOMETRIOSIS N USE OF BLOOD THINNERS N SKIN PROBLEMS N EMPHYSEMA N GASTROINTESTINAL DISORDER N PERIPHERAL ARTERY DISEASE N MUSCLE,JOINT OR BONE PROBLEMS N GASTROINTESTINAL BLEEDING N BLOOD CLOTS N ASTHMA N CATARACTS N Abdominal Pain N ERECTILE DYSFUNCTION N ARTERIAL INSUFFICIENCY N GI PROBLEMS N CHF N Low Testosterone N NEUROPATHY N INFERTILITY N AIDS/HIV N FRACTURES N CHEMOTHERAPY / RADIATION N VISION/EYE PROBLEMS N LIVER DISEASE N HYPERTENSION N TOURETTE'S N ANXIETY DISORDER N BLOOD TRANSFUSION N ANEMIA/BLOOD DISORDER N CHRONIC EAR INFECTIONS N BRONCHITIS N TUBERCULOSIS N GLAUCOMA N FOOT PROBLEM N DIVERTICULITIS N SLEEP APNEA N CHICKENPOX N ALLERGIES/HAYFEVER N BACK INJECTIONS N INFECTIOUS DISEASE N PROSTATE N HEART ARRHYTHMIA N ESRD N INSOMNIA N HIGH CHOLESTEROL / HYPERLIPIDEMIA N EYE PROBLEMS N HYPERTHYROIDISM N PVD N EATING DISORDER N EDEMA N CHRONIC PAIN SYNDROME N CAROTID BLOCKAGE N CONSTIPATION N BACK / NECK PROBLEMS N HAVE YOU BEEN HOSPITALIZED OR SEEN IN [facility] IN THE PAST YEAR ? N ATHEROSCLEROSIS N BREAST PROBLEMS N DIALYSIS N POLYCYSTIC OVARIES N ECZEMA N FIBROMYALGIA N OSTEOPOROSIS N ARTHRITIS N NO SIGNIFICANT PAST MEDICAL HISTORY N APPENDICITIS N DIABETES, TYPE N BAD TEETH N VON WILLIBRAND'S DISEASE N HEARTBURN / REFLUX N ADD/ADHD N AUTISM SPECTRUM DISORDER (ASD) N POST LAMINECTOMY SYNDROME N HEPATITIS / LIVER DISEASE N PULMONARY DISEASE N GOUT N SLEEP DISORDER N ALZHEIMER'S DISEASE N PAIN N DEMENTIA N HERPES N SEIZURES/EPILEPSY N HEADACHES/MIGRAINES N VASCULAR DISEASE N PACEMAKER N DIZZINESS N KIDNEY DISEASE N HEART DISEASE/HEART PROBLEMS N SCARLET FEVER N MULTIPLE SCLEROSIS N MENTAL DISORDER/ILLNESS N DEVELOPMENTAL OR BEHAVIORAL DISORDERS N NEUROPSYCHOLOGICAL N CANCER: SPECIFY N CARDIAC ARRHYTHMIA N PNEUMONIA N ATRIAL FIBRILLATION N Gall Stones N PULMONARY EMBOLISM N AUTOIMMUNE DISEASE N Gynecological History Statement/Question Response Date of LMP 08/07/2022 Obstetrics History GPAL:G 0 P 0 0 0 0 Immunizations Vaccine Type Date Status Note Provider Nam e and Address Organization Details Recorded Time DTaP 3 completed Not Available [facility] 04/12/2022 07:46:57 DTaP 8 completed Not Available [facility] 04/12/2022 07:46:58 IPV 8 completed Not Available [facility] 04/12/2022 07:46:58 MMR 8 completed Not Available [facility] 04/12/2022 07:46:58 DTaP 4 completed Not Available [facility] 04/12/2022 07:46:58 IPV 4 completed Not Available [facility] 04/12/2022 07:46:58 Hib (HbOC) 4 completed Not Available [facility] 04/12/2022 07:46:58 MMR 4 completed Not Available [facility] 04/12/2022 07:46:58 Hep B, adolescent or pediatric 3 completed Not Available [facility] 04/12/2022 07:46:58 Hib (HbOC) 3 completed Not Available [facility] 04/12/2022 07:46:58 DTaP 3 completed Not Available [facility] 04/12/2022 07:46:58 IPV 3 completed Not Available [facility] 04/12/2022 07:46:58 Hib (HbOC) 3 completed Not Available [facility] 04/12/2022 07:46:58 IPV 3 completed Not Available [facility] 04/12/2022 07:46:59 Hib (HbOC) 3 completed Not Available [facility] 04/12/2022 07:46:59 Hep B, adolescent or pediatric 2 completed Not Available [facility] 04/12/2022 07:46:59 Hep B, adolescent or pediatric 2 completed Not Available [facility] 04/12/2022 07:46:59 Influenza, split virus, quadrivalent, preservative 8 completed Not Available [facility] 04/12/2022 07:46:59 Influenza, split virus, trivalent, preservative 6 completed Not Available [facility] 04/12/2022 07:46:59 Hep A, adult 5 completed Not Available [facility] 04/12/2022 07:46:59 DTaP 5 completed Not Available [facility] 04/12/2022 07:46:59 Tdap 6 completed Not Available [facility] 04/12/2022 07:46:59 Hep A, adult 5 completed Not Available [facility] 04/12/2022 07:46:59 Influenza, split virus, quadrivalent, PF 4 completed [place] [employer] 03/07/2023 11:11:34 Past Encounters Encounter ID Performer Location Encounter Start Date Encounter Closed Date Diagnosis/Indication Diagnosis SNOMED-CT Code Diagnosis ICD10 Code Diagnosis IMO Codes Diagnosis Note [id number] Clifford Kimble MD [address] [address] 08/29/2022 17:13:41 08/29/2022 17:55:24 Adult health examination 196947088 Z00.00 Diabetes m ellitus screening 907910898 Z13.1 Screening for disorder 893915045 Z13.9 Acne 22923071 L70.9 Effects of high altitude 79896101 T70.20XD [id number] Clifford Kimble MD [address] [address] 03/06/2023 16:32:12 03/06/2023 17:11:59 Adult health examination 439689644 Z00.00 Diabetes m ellitus screening 734600112 Z13.1 Screening for disorder 778053208 Z13.9 Acne 95514240 L70.9 Active or passive immunization 081657442 Z23 Persistent cough 0469854 02 R05.3 History an d physical examination, pre-employment 323160122 Z02.1 [id number] Clifford Kimble MD [address] [address] 01/21/2024 15:37:28 01/21/2024 16:06:32 Headache 67816164 R51.9 Migraine without aura 56 207212 G43.009 Family his tory of neoplasm of brain 150837490 Z84.89 Advised to refer to Neuro; but pt declined. [id number] Clifford Kimble MD [address] [address] 03/25/2024 09:24:37 03/25/2024 10:03:32 Adult health examination 006499440 Z00.00 Diabetes m ellitus screening 674988380 Z13.1 Screening for disorder 477055997 Z13.9 Acne 47012502 L70.9 Irritable bowel syndrome 47768956 K58.9 Migraine without aura 56 435959 G43.009 Gastroenteritis 73405164 K52.9 [id number] Clifford Kimble MD [address] [address] 04/15/2024 16:55:38 04/15/2024 17:19:19 Acne 76230415 L70.9 Irritable bowel syndrome 67678026 K58.9 Migraine without aura 56 694214 G43.009 Gastroenteritis 14600993 K52.9 resolved Vitamin D deficiency 347 82647 E55.9 Hyperbilirubinemia 60355 006 E80.6 Health Concerns Section Related Observation LastModified by Organization Detai ls LastModified Time None Recorded Concern Status LastModified by Organization Details LastModified Time None Recorded Advance Directives Directive None Recorded Payers Insurance Date Sequence Insurance Name Policy Number Policy Montoya Covered Member ID Montoya Member ID Guarantor Name 01/21/2024 1 [facility] [id number] Renita Gay [id number] Renita Gay 01/21/2024 2 [facility] Renita Gay [id number] Renita aGy 03/25/2024 1 [facility] [id number] Renita Gay [id number] Renita Gay 04/12/2024 1 [facility] [id number] Renita Gay [id number] Renita Gay Notes Date Note Type Note Provider Name and Address Organization Details Recorded Time 08/29/2022 text/html New pt visit:31 yo F is here to establish her care. Pt was seeing PCP [facility].Doing overall well. Pt is requesting meds for her 2 mountain trips in next couple months. Pt has done it in the past and no problem with it.PM, and reviewed. Clifford Kimble MD [address], [place], [address], [employer] 08/29/2022 17:54:57 03/06/2023 text/html Pt is here for her annual exam. Doing overall well. Pt has few things to discuss today. Pt needs a physical form to be filled out for her new job. Needs PPD skin test and flu shot today. C/o cough & congestion for last couple months. Pt was seen at and was treated with Z-stiven at that time. Denies any other symptoms. Pt will be seeing an Plug Sorter next month.PM, and reviewed. Clifford Kimble MD [address], [place], [address], [employer] 03/06/2023 17:10:17 01/21/2024 text/html ACV: C/o migraine that is not controlled and she wants to get on Rx med for it. Pt has tried OTC migraine meds, but its not helping her. Pt says its more pronounced around her period. Pt is also due for her Eye exam. Pt has not gone for any annual labs yet. Denies any recent fall/head trauma. Clifford Kimble MD [address], [address], [place], [address], [facility] 01/21/2024 16:18:33 03/25/2024 text/html Pt is here for her annual exam. Doing overall well. C/o nausea, vomiting, loose stool since yesterday. Pt works at [place] and there are few cases of Norovirus there. Pt had another episode few weeks ago and last year. Pt says for last 6 months, she has lot of GI issues. Pt is f/u with healthcare insurance sales agent for her chronic allergies and she is almost [place].PMH, FH and SH reviewed. Clifford Kimble MD [address], [address], [place], [address], [facility] 03/25/2024 09:55:32 04/15/2024 text/html Pt is here for f/u on her annual labs. Doing overall well now. Denies any new concern. Pt is f/u with healthcare insurance sales agent for her chronic allergies and she is almost [place].Pt is doing better with her migraine and its well controlled on OTC meds. Clifford Kimble MD [address], [place], [address], [facility] 04/15/2024 17:19:02 OBGyn Episode No OBEpisode recorded.
--- OUTSIDE RECORDS SUMMARY | 2025-01-24 10:40 | XMS_ITS | Clinical Summary ---
Author Organization [facility] Address [address] [place] [id number] Care Team Providers Care Plastic Surgery Assistant Name Role Phone Unavailable Primary Care Provider Unavailabl e Social History Tobacco Use Types Packs/Day Years Used Date Smoking Tobacco: Never Assessed Comments Unknown Sex and Gender Information Value Date Recorded Sex Assigned at Not on file Legal Sex Female 4:34 PM CDT Gender Identity Not on file Sexual Orientation Not on file Plan of Treatment Health Maintenance Due Date Last Done Comments Cervical Cancer Screening Pa p Smear (Age 30 to 64) Every 3 Years 1991 Annual Physical 12/10/1994 Hepatitis C 12/10/2009 DTaP, Tdap and Td Vaccines ( 1 - Tdap) 12/10/2010 Hepatitis B Vaccines (1 of 3 - 19+ 3-dose series) 12/10/2010 HPV Vaccines (1 - 3-dose SCD M series) 12/10/2018 Cervical Cancer Screening Pa p with HPV Testing (Age 30 to 64) Every 5 Years 12/10/2021 Cervical Cancer Screening with HPV 12/10/2021 COVID-19 Vaccine (2024-2 6 season) 2024 Influenza Adult (#1) 2024 Hepatitis A Vaccines Aged Out No long er eligible based on patient's age to complete this topic Meningococcal B Vaccine Aged Out No l onger eligible based on patient's age to complete this topic Meningococcal Vaccine Aged Out No jazlyn rebeca eligible based on patient's age to complete this topic Pneumococcal Vaccine: Pediat rics (0 to 5 Years) and At-Risk Patients (6 to 49 Years) Aged Out No longer eligible b ased on patient's age to complete this topic RSV Immunizations Under 20 Months Aged Out No longer eligible based on patient's age to complete this topic
--- OUTSIDE RECORDS SUMMARY | 2025-01-24 10:40 | XMS_ITS | Clinical Summary ---
Author Organization [facility] [employer] [facility] Address [address] [facility] [place] [address] Care Team Providers Care Motor Brakeman Name Role Phone Pcp, No Primary Care Provider [phone] Immunizations Immunization Administration Dates Next Due Fluzone Quadrivalent Single Dose Vial 04/03/2022 PPD Test 03/22/2022 Social History Tobacco Use Types Packs/Day Years Used Date Smoking Tobacco: Never Assessed Comments Unknown Sex and Gender Information Value Date Recorded Sex Assigned at Not on file Legal Sex Female 3:13 PM EDT Gender Identity Not on file Sexual Orientation Not on file Plan of Treatment Health Maintenance Due Date Last Done Comments Depression: Screening Annual ly using PHQ-2/9 in Adults 18 yrs or above (or HM Modifier)([facility]) 12/10/2009 Hepatitis C Virus Infection in Adolescents and Adults: Screening (or Modifier) ([facility]) 12/10/2009 SDOH Screening Reminder: Nicole bean for all adults ([facility]) 12/10/2009 Tobacco Smoking Cessation: i n Adults excluding Women: Behavioral and Pharmacotherapy Interventions ([facility]) 12/10/2009 DTaP/Tdap/Td Vaccines ([facility]) (1 - Tdap) 12/10/2010 Cervical Cancer Screenin 1-65 yrs of age (or Modifier) 12/10/2012 Cervical Cancer Screening: P ap every 3 yrs pts age 21-65 12/10/2012 Cervical Cancer: Pap Screeni ng with Modifier timing ([facility]) 12/10/2012 Cervical Cancer: hrHPV alone or with cotesting Pap for Pts 30-65yrs screening every 5yrs ([facility]) 12/10/2012 Flu Vaccination: Yearly for ages 18mos through 64 years (or Modifier)([facility]) 09/12/2024 COVID-19 Vaccine Screening: Initial Series and Booster Status ([facility]) (2024- season) 2024 Zoster/Shingles Vaccine Seri es Screening: Adults aged 18+ yrs (or HM Modifiers)([facility]) (1 of 2) 12/10/2041 Pneumococcal Vaccination Scr eening: Pts 0-19 & 19-49 yrs of age ([facility]) Aged Out No longer eligible based on patient's age to complete this topic Medical Devices Not on file Insurance [facility] Care Teams Motor Brakeman Relationship Specialty Start Date End Date Pcp, Saranya PCP - General Family Medicine 04/03/22
[2025-01-25 06:07] LABS: FSH 4.9 mIU/mL (.)
== END 2025-01-24 10:34 | disposition home or self-care (01) ==
PROVIDERS: Visit Provider Obstetrics & Gynecology
DX: N92.6 Irregular menstruation, unspecified (principal)
CPT/HCPCS: 83001; 84144; 84146